=== PATIENT | female | born 1945 | race Caucasian/White ===

== ENCOUNTER 2017-03-12 14:33 | Emergency (ER) | payer MEDICARE, MEDICAID ==
[2017-03-12] MEDS ORDERED: ONDANSETRON HCL INJ/PF 4 MG/2 ML SDV IV ONE (14:51)
[2017-03-12] MEDS ORDERED: MORPHINE SULFATE 10 MG/ML INJ IV ONE (14:51)
--- NOTE | 2017-03-12 14:54 | ER Document Report ---
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 Had another fall just prior to arrival since then having pain over the left hip. She states she fell on her left hip. Denies any head injury denies any loss of consciousness. Denies any pain over the upper limbs. Denies any chest pain or chest wall pain. Denies any abdominal pain. Denies any nausea vomiting TRAVEL OUTSIDE OF THE [place] IN LAST 30 DAYS: No - Related Data Allergies/Adverse Reactions: No Known Allergies Allergy (Verified 11/27/15 12:35) Past Medical History - Social History Smoking Status: Never Smoker Family History: Reviewed & Not Pertinent - Past Medical History Cardiac Medical History: Reports: Hx Congestive Heart Failure, Hx Coronary Artery Disease, Hx Heart Attack - 2003, Hx Hypertension - on meds Pulmonary Medical History: Reports: Hx Bronchitis - occ , Hx COPD, Hx Pneumonia - hx of Denies: Hx Asthma, Hx Tuberculosis Neurological Medical History: Reports: Hx Cerebrovascular Accident - 2007 . Denies: Hx Seizures Endocrine Medical History: Reports: Hx Diabetes Mellitus Type 1, Hx Diabetes Mellitus Type 2 Musculoskeltal Medical History: Reports Hx Arthritis - generalized Past Surgical History: Reports: Hx Cardiac Catheterization - stents x 2, Hx Cardiac Surgery, Hx Hysterectomy, Hx Tubal Ligation. Denies: Hx Pacemaker - Immunizations Hx Diphtheria, Pertussis, Tetanus Vaccination: Yes Hx Pneumococcal Vaccination: 03/18/15 Review of Systems - Review of Systems Notes: REVIEW OF SYSTEMS: CONSTITUTIONAL : Denies fever, chills, or sweats. Denies recent illness. EENT: Denies eye, ear, throat, or mouth pain or symptoms. Denies nasal or sinus congestion or discharge. Denies throat, tongue, or mouth swelling or difficulty swallowing. CARDIOVASCULAR: Denies chest pain. Denies palpitations or racing or irregular heart beat. Denies ankle edema. RESPIRATORY: Denies cough, cold, or chest congestion. Denies shortness of breath, difficulty breathing, or wheezing. GASTROINTESTINAL: Denies abdominal pain or distention. Denies nausea, vomiting , or diarrhea. Denies blood in vomitus, stools, or per rectum. Denies black, tarry stools. Denies constipation. GENITOURINARY: Denies difficulty urinating, painful urination, burning, frequency, blood in urine, or discharge. FEMALE GENITOURINARY: Denies vaginal bleeding, heavy or abnormal periods, irregular periods. Denies vaginal discharge or odor. MUSCULOSKELETAL: As per history of complaint complain. Denies any lower back pain SKIN: Denies rash, lesions or sores. HEMATOLOGIC : Denies easy bruising or bleeding. LYMPHATIC: Denies swollen, enlarged glands. NEUROLOGICAL: Denies confusion or altered mental status. Denies passing out or loss of consciousness. Denies dizziness or lightheadedness. Denies headache. Denies weakness or paralysis or loss of use of either side. Denies problems with gait or speech. Denies sensory loss, numbness, or tingling. Denies seizures. PSYCHIATRIC: Denies anxiety or stress. Denies depression, suicidal ideation, or homicidal ideation. ALL OTHER SYSTEMS REVIEWED AND NEGATIVE. PHYSICAL EXAMINATION: GENERAL: She is alert, oriented, appears to be in discomfort. HEAD: Atraumatic, normocephalic. EYES: Pupils equal round and reactive to light, extraocular movements intact, conjunctiva are normal. ENT: Nares patent, oropharynx clear without exudates. Moist mucous membranes. NECK: Normal range of motion, supple without lymphadenopathy LUNGS: Breath sounds clear to auscultation bilaterally and equal. No wheezes rales or rhonchi. HEART: Regular rate and rhythm without murmurs ABDOMEN: Soft, nontender, nondistended abdomen. No guarding, no rebound. No masses appreciated. Female : deferred Musculoskeletal: Left heel is shorter than the right, it is not externally rotated all flexed. It is not abducted. Tenderness noted diffusely over the left side of the hip, as well as pelvic region. Could not perform any range of motion due to pain. Right lower extremity without any tenderness able to flex partially and extend. Neurovascular function within normal limits. Upper extremity range of motion was within normal limits without any discomfort. NEUROLOGICAL: Cranial nerves grossly intact. Normal speech, normal gait. Normal sensory, motor exams PSYCH: Normal mood, normal affect. SKIN: Warm, Dry, normal turgor, no rashes or lesions noted. Dictation was performed using Object[employer] recognition software Physical Exam - Vital signs Vitals: Temp Pulse Resp BP Pulse Ox 98.8 F 73 16 112/50 L 95 03/12/17 14:42 03/12/17 14:42 03/12/17 14:42 03/12/17 14:42 03/12/17 14:42 Course - Re-evaluation Re-evalutation: 03/12/17 18:24 Patient is sitting up on the bed, pain-free. Comfortable. Wish to go home Family members were around. Discussed her case. Advised strongly to walk with a walker. Family members indicate that she never listens and never walks with a walker or walking stick. She was warned that if she does so she will fall again. - Vital Signs Vital signs: Temp Pulse Resp BP Pulse Ox 98.8 F 73 16 112/50 L 95 03/12/17 14:42 03/12/17 14:42 03/12/17 14:42 03/12/17 14:42 03/12/17 14:42 Discharge - Discharge Clinical Impression: Fall Qualifiers: Encounter type: initial encounter Qualified Code(s): W19.XXXA - Unspecified fall, initial encounter Sprain of left hip Qualifiers: Encounter type: initial encounter Qualified Code(s): S73.102A - Unspecified sprain of left hip, initial encounter Condition: Good Disposition: HOME, SELF-CARE Instructions: Pelvic Pain ([facility])
--- NOTE | 2017-03-12 15:28 | RADIOLOGY REPORT (SQ) ---
EXAM DESCRIPTION: HIP LEFT AP/LATERAL COMPLETED DATE/TIME: 03/12/2017 3:00 pm REASON FOR STUDY: fall COMPARISON: None. NUMBER OF VIEWS: Two views. TECHNIQUE: AP pelvis and additional frog-leg view of the left hip. LIMITATIONS: None. FINDINGS: MINERALIZATION: Normal. LEFT HIP: No fracture or dislocation. No worrisome bone lesions. Moderate joint space narrowing. S mall marginal osteophyte on femoral head. Subchondral cysts in the acetabulum. RIGHT HIP: No fracture or dislocation. No worrisome bone lesions. PUBIS AND ISCHIUM: No fracture. PELVIS: No fracture. SACRUM: No fracture or dislocation. No worrisome bone lesions. LOWER LUMBAR SPINE: No fracture or dislocation. No worrisome bone lesions. No significant disc disea se. SOFT TISSUES: No findings. OTHER: No other significant finding. IMPRESSION: Moderate degenerative joint changes left hip. No acute abnormality. TECHNICAL DOCUMENTATION: JOB ID: [id number] [employer]- All Rights Reserved
--- NOTE | 2017-03-12 16:28 | RADIOLOGY REPORT (SQ) ---
EXAM DESCRIPTION: CT ABD/PELVIS NO ORAL OR IV COMPLETED DATE/TIME: 03/12/2017 4:15 pm REASON FOR STUDY: pelvic pain COMPARISON: None. TECHNIQUE: CT scan of the abdomen and pelvis performed without intravenous or oral contrast. Images reviewed with lung, soft tissue, and bone windows. Reconstructed coronal and sagittal MPR images revi ewed. All images stored on PACS. All CT scanners at this facility use dose modulation, iterative reconstruction, and/or weight based d osing when appropriate to reduce radiation dose to as low as reasonably achievable (ALARA). [facility]: Dose Right [facility]: CareDose [facility]: Dose Right [facility]: Teradose 4D [facility]: [employer] RADIATION DOSE: CT Rad equipment meets quality standard of care and radiation dose reduction techniq ues were employed. CTDIvol: 16.6 mGy. DLP: 916 mGy-cm.mGy. LIMITATIONS: None. FINDINGS: LOWER CHEST: No significant findings. No nodules or infiltrates. NON-CONTRASTED LIVER, SPLEEN, ADRENALS: Evaluation limited by lack of IV contrast. No identified sign ificant masses. PANCREAS: No masses. No peripancreatic inflammatory changes. GALLBLADDER: No identified stones by CT criteria. No inflammatory changes to suggest cholecystitis. RIGHT KIDNEY AND URETER: No suspicious masses. Assessment limited by lack of IV contrast. No signif icant calcifications. No hydronephrosis or hydroureter. LEFT KIDNEY AND URETER: No suspicious masses. Assessment limited by lack of IV contrast. No signifi cant calcifications. No hydronephrosis or hydroureter. AORTA AND RETROPERITONEUM: No aneurysm. No retroperitoneal masses or adenopathy. BOWEL AND PERITONEAL CAVITY: No obvious masses or inflammatory changes. No free fluid. APPENDIX: Not visualized. PELVIS, BLADDER, AND ABDOMINAL WALL:No abnormal masses. No free fluid. Bladder normal. BONES: No significant findings. OTHER: No other significant finding. IMPRESSION: NO SIGNIFICANT OR ACUTE PROCESS IN THE ABDOMEN OR PELVIS. COMMENT: Quality ID # [id number]: Final reports with documentation of one or more dose reduction techniques (e.g., Automated exposure control, adjustment of the mA and/or kV according to patient size, use of iterative reconstruction technique) TECHNICAL DOCUMENTATION: JOB ID: [id number] [employer]- All Rights Reserved
[2017-03-12 18:39] VITALS: BP 117/64
== END 2017-03-12 18:39 | disposition home or self-care (01) ==
LOC: ER 14:33
DX: S73.102A Unspecified sprain of left hip, initial encounter (principal); W19.XXXA Unspecified fall, initial encounter; R10.819 Abdominal tenderness, unspecified site; E11.40 Type 2 diabetes mellitus with diabetic neuropathy, unspecified; I25.10 Atherosclerotic heart disease of native coronary artery without angina pectoris; I25.2 Old myocardial infarction; I10 Essential (primary) hypertension; J44.9 Chronic obstructive pulmonary disease, unspecified; Z86.73 Personal history of transient ischemic attack (TIA), and cerebral infarction without residual deficits; Z95.5 Presence of coronary angioplasty implant and graft
CPT/HCPCS: 74176; 99284

== ENCOUNTER 2017-11-18 08:39 | Emergency (ER) | payer MEDICARE, MEDICAID ==
--- NOTE | 2017-11-18 09:12 | ER Document Report ---
ED General - General Chief Complaint: Fall Stated Complaint: FALL Time Seen by Provider: 11/18/17 08:59 TRAVEL OUTSIDE OF THE [place] IN LAST 30 DAYS: No - HPI Notes: Patient is a 72-year-old female with a history of insulin-dependent diabetes, hypertension, hypercholesterolemia, chronic pain who presents to the ED with family status post fall this morning. Patient states that she was in the bathroom when her knee gave out on her and she fell hitting her head off the floor. Daughter states that she had a knee replacement to her left knee and she has had stability issue since then. Patient states that she has been weak for the last month which has been followed closely by her family doctor and they are working on medicine changes for her currently. Patient states that she has not had any dizziness associated in the reason she fell was because her knee gave out on her. She is otherwise been eating and drinking without any difficulties. She is urinating normally and having normal bowel movements. She has not had any other recent illness. Daughter states that she was brought to the ED because she had increased left hip pain, low back pain, head injury, and neck pain status post her fall. She is also had a small skin tear to the right posterior hand which they vertically up and put a Band-Aid on. Denies any drug allergies. No other concerns or complaints. Denies any headache, fever, changes in vision/speech/mentation/hearing, URI, sore throat, chest pain , palpitations, syncope, cough, shortness of breath, wheeze, dyspnea, abdominal pain, nausea/vomiting/diarrhea, urinary retention, dysuria, hematuria, loss of control of bowel or bladder, numbness/tingling, saddle anesthesia, muscle paralysis/weakness, or rash. - Related Data Allergies/Adverse Reactions: No Known Allergies Allergy (Verified 11/27/15 12:35) Past Medical History - Social History Smoking Status: Never Smoker Chew tobacco use (# tins/day): No Frequency of alcohol use: None Drug Abuse: None Family History: Reviewed & Not Pertinent Patient has suicidal ideation: No Patient has homicidal ideation: No - Past Medical History Cardiac Medical History: Reports: Hx Congestive Heart Failure, Hx Coronary Artery Disease, Hx Heart Attack - 2004, Hx Hypertension - on meds Pulmonary Medical History: Reports: Hx Bronchitis - occ , Hx COPD, Hx Pneumonia - hx of Denies: Hx Asthma, Hx Tuberculosis Neurological Medical History: Reports: Hx Cerebrovascular Accident - 2008 . Denies: Hx Seizures Endocrine Medical History: Reports: Hx Diabetes Mellitus Type 1, Hx Diabetes Mellitus Type 2 Renal/ Medical History: Denies: Hx Peritoneal Dialysis Musculoskeletal Medical History: Reports Hx Arthritis - generalized Past Surgical History: Reports: Hx Cardiac Catheterization - stents x 2, Hx Cardiac Surgery, Hx Hysterectomy, Hx Orthopedic Surgery - L knee replacement, Hx Tubal Ligation. Denies: Hx Pacemaker - Immunizations Hx Diphtheria, Pertussis, Tetanus Vaccination: Yes Hx Pneumococcal Vaccination: 03/18/15 Review of Systems - Review of Systems -: Yes All other systems reviewed and negative Physical Exam - Vital signs Vitals: Temp Pulse Resp BP Pulse Ox 97.5 F 76 18 154/66 H 95 11/18/17 08:44 11/18/17 08:44 11/18/17 08:44 11/18/17 08:44 11/18/17 08:44 - Notes Notes: PHYSICAL EXAMINATION: GENERAL: Well-appearing, well-nourished and in no acute distress. A&Ox4. Answers questions appropriately. HEAD: Atraumatic, normocephalic. Non-tender. No baez sign, hematoma, or bogginess. EYES: Pupils equal round and reactive to light, extraocular movements intact, sclera anicteric, conjunctiva are normal. No raccoon eyes/entrapment ENT: EAC clear b/l. TM's intact b/l without erythema, fluid, or perforation. Nares patent and without discharge. oropharynx clear without exudates. No tonsilar hypertrophy or erythema. Moist mucous membranes. No sinus tenderness. No hemotympanum/CSF discharge. NECK: Normal range of motion, supple without lymphadenopathy. No rigidity. + midline tenderness. Chest: No flail chest. equal rise/fall. Non-tender LUNGS: Breath sounds clear to auscultation bilaterally and equal. No wheezes rales or rhonchi. HEART: Regular rate and rhythm without murmurs, rubs, gallops. ABDOMEN: Soft, nontender, nondistended abdomen. No guarding, no rebound. No masses appreciated. Normal bowel sounds present. No CVA tenderness bilaterally. Musculoskeletal: lt hip: LROM. + tenderness to palpation of the left lateral hip area. Ext's otherwise b/l: FROM to passive/active. Strength 5+/5. No deficits noted. No bony tenderness of extremities. Back: LROM to passive/active. Strength 5+/5. + tenderness to the L-spine. No other bony tenderness or ecchymosis. Extremities: No cyanosis, clubbing, or edema b/l. Peripheral pulses 2+. Capillary refill less than 2 seconds. NEUROLOGICAL: NIH 0. GCS 15. Cranial nerves grossly intact. Normal speech. Normal sensory, motor exams. Reflexes 2+ b/l. SERJIO's negative. Pronator drift negative. PSYCH: Normal mood, normal affect. SKIN: Small skin tear posterior left hand. Course - Re-evaluation Re-evalutation: 11/18/17 10:12 Patient is an afebrile, well-hydrated, 72-year-old female who presents to the ED status post fall with low back pain, left hip pain, neck pain, and a skin tear to the right posterior hand. Vitals are acceptable without any significant tachycardia, tachypnea, or hypoxia. PE is otherwise unremarkable for any focal neurological deficits, neurovascular compromise, obvious tendon/ ligament rupture, obvious fracture/dislocation. CT scan of the head, cervical spine, L spine were unremarkable for acute pathology. X-ray of the left hip was also unremarkable for any acute pathology. Patient declined any Tylenol or Motrin today. We were able to have her ambulate around the hallway without any difficulties, but she does continue to limp. She is tolerating p.o. without any difficulties and is nontoxic-appearing. Low suspicion for any acute glaucoma, temporal arteritis, meningitis, intracranial hemorrhage, ischemic stroke, fracture, expanding/ruptured AAA, cauda equina syndrome, epidural mass lesion/abscess, herniated disc causing severe spinal stenosis, or other systemic infection at this time. Patient is aware that her condition can change from initial presentation and that she needs monitor symptoms closely for any acute changes. Conservative measures for symptoms. Recheck with your PCM in 2-3 days. Return to the ED with any worsening/concerning symptoms otherwise as reviewed in discharge. Patient and family are in agreement. - Vital Signs Vital signs: Temp Pulse Resp BP Pulse Ox 97.5 F 76 18 154/66 H 95 11/18/17 08:44 11/18/17 08:44 11/18/17 08:44 11/18/17 08:44 11/18/17 08:44 Discharge - Discharge Clinical Impression: Cervicalgia, Left hip pain Fall Qualifiers: Encounter type: initial encounter Qualified Code(s): W19.XXXA - Unspecified fall, initial encounter Head injury Qualifiers: Encounter type: initial encounter Qualified Code(s): S09.90XA - Unspecified injury of head, initial encounter Low back pain Qualifiers: Chronicity: acute Back pain laterality: midline Sciatica presence: without sciatica Qualified Code(s): M54.5 - Low back pain Condition: Stable Disposition: HOME, SELF-CARE Instructions: Head Injury Precautions ([facility]), Stretching Exercises for the Back ([facility]), Low Back Pain ([facility]) Additional Instructions: Rest, Ice Tylenol/ibuprofen as needed Light stretches daily Strength exercises as able Moist heat and massage may help F/u with your PCP in 2-3 days for a recheck Consider consult(s) with Orthopedics/physical therapy for ongoing/worsening symptoms Return to the ED with any worsening symptoms and/or development of fever, headache, chest pain, palpitations, syncope, shortness of breath, trouble breathing, abdominal pain, n/v/d, muscle weakness/paralysis, numbness/tingling, swelling, redness, or other worsening symptoms that are concerning to you. Forms: Elevated Blood Pressure Referrals: DEBORAH TREVINO PA-C [NO LOCAL MD] - 11/20/17 [facility] [Provider Group] - Follow up as needed
--- NOTE | 2017-11-18 09:54 | RADIOLOGY REPORT (SQ) ---
EXAM DESCRIPTION: CT HEAD WITHOUT COMPLETED DATE/TIME: 11/18/2017 9:45 am REASON FOR STUDY: pain s/p fall COMPARISON: None. TECHNIQUE: Axial images acquired through the brain without intravenous contrast. Images reviewed wi th bone, brain and subdural windows. Additional sagittal and coronal reconstructions were generated. Images stored on PACS. All CT scanners at this facility use dose modulation, iterative reconstruction, and/or weight based d osing when appropriate to reduce radiation dose to as low as reasonably achievable (ALARA). [facility]: Dose Right [facility]: CareDose [facility]: Dose Right [facility]: Teradose 4D [facility]: [employer] RADIATION DOSE: CT Rad equipment meets quality standard of care and radiation dose reduction techniq ues were employed. CTDIvol: 53.2 mGy. DLP: 991 mGy-cm.mGy. LIMITATIONS: None. FINDINGS: VENTRICLES: Prominent. CEREBRUM: No masses. No hemorrhage. No midline shift. Areas of low density in the white matter mos t likely due to chronic micro-vascular ischemic change. No evidence for acute infarction. CEREBELLUM: No masses. No hemorrhage. No alteration of density. No evidence for acute infarction. EXTRAAXIAL SPACES: Age-related involutional change. No fluid collections. No masses. ORBITS AND GLOBE: No intra- or extraconal masses. Normal contour of globe without masses. CALVARIUM: No fracture. PARANASAL SINUSES: No fluid or mucosal thickening. SOFT TISSUES: No mass or hematoma. OTHER: No other significant finding. IMPRESSION: CHRONIC CHANGES OF ATROPHY AND MICROVASCULAR ISCHEMIA. NO ACUTE PROCESS. EVIDENCE OF ACUTE STROKE: NO. TECHNICAL DOCUMENTATION: JOB ID: [id number] Quality ID # [id number]: Final reports with documentation of one or more dose reduction techniques (e.g., Au tomated exposure control, adjustment of the mA and/or kV according to patient size, use of iterative reconstruction technique) 2010 [employer]- All Rights Reserved Reading location - IP/workstation name: [email or web address]
--- NOTE | 2017-11-18 09:55 | RADIOLOGY REPORT (SQ) ---
EXAM DESCRIPTION: CT CERVICAL SPINE WITHOUT COMPLETED DATE/TIME: 11/18/2017 9:45 am REASON FOR STUDY: pain s/p fall COMPARISON: None. TECHNIQUE: Axial images acquired through the cervical spine without intravenous contrast. Images re viewed with lung, soft tissue and bone windows. Reconstructed coronal and sagittal MPR images review ed. Images stored on PACS. All CT scanners at this facility use dose modulation, iterative reconstruction, and/or weight based d osing when appropriate to reduce radiation dose to as low as reasonably achievable (ALARA). [facility]: Dose Right [facility]: CareDose [facility]: Dose Right [facility]: Teradose 4D [facility]: [employer] RADIATION DOSE: CT Rad equipment meets quality standard of care and radiation dose reduction techniq ues were employed. CTDIvol: 21.2 mGy. DLP: 402 mGy-cm. mGy. LIMITATIONS: None. FINDINGS: ALIGNMENT: Slight anterolisthesis C4 relative to C5. MINERALIZATION: Normal. VERTEBRAL BODIES: No fractures or dislocation. DISCS: Multilevel disc space narrowing with osteophytes. FACETS, LATERAL MASSES, POSTERIOR ELEMENTS: Facet arthropathy. No fractures. No dislocation. No ac josh findings. HARDWARE: None in the spine. VISUALIZED RIBS: No fractures. LUNG APICES AND SOFT TISSUES: No significant or acute findings. OTHER: No other significant finding. IMPRESSION: CHRONIC DEGENERATIVE CHANGES. NO ACUTE FINDINGS. TECHNICAL DOCUMENTATION: JOB ID: [id number] Quality ID # [id number]: Final reports with documentation of one or more dose reduction techniques (e.g., Au tomated exposure control, adjustment of the mA and/or kV according to patient size, use of iterative reconstruction technique) 2010 [employer]- All Rights Reserved Reading location - IP/workstation name: [email or web address]
--- NOTE | 2017-11-18 10:05 | RADIOLOGY REPORT (SQ) ---
EXAM DESCRIPTION: CT LUMBAR SPINE WITHOUT COMPLETED DATE/TIME: 11/18/2017 9:45 am REASON FOR STUDY: pain s/p fall COMPARISON: None. TECHNIQUE: Axial images acquired through the lumbar spine without intravenous contrast. Images revi ewed with lung, soft tissue and bone windows. Reconstructed coronal and sagittal MPR images reviewed . All images stored on PACS. All CT scanners at this facility use dose modulation, iterative reconstruction, and/or weight based d osing when appropriate to reduce radiation dose to as low as reasonably achievable (ALARA). [facility]: Dose Right [facility]: CareDose [facility]: Dose Right [facility]: Teradose 4D [facility]: [employer] RADIATION DOSE: mGy. LIMITATIONS: None. FINDINGS: SEGMENTATION: Normal. No transitional anatomy. ALIGNMENT: Normal. VERTEBRAL BODIES: No fractures. No dislocation. No acute findings. DISCS: Multilevel mild disc space narrowing with disc bulges at L4-5 and L5-S1. PEDICLES, TRANSVERSE PROCESSES: No fractures. No dislocation. No acute findings. FACETS, POSTERIOR ELEMENTS: No pars defect. Fairly mild multilevel facet degenerative changes withou t bulky overgrowth. HARDWARE: None in the spine. VISUALIZED RIBS: No fractures. SOFT TISSUES: No significant or acute finding in adjacent soft tissues. OTHER: No other significant finding. IMPRESSION: No evidence of lumbar spine fracture. Spondylosis. TECHNICAL DOCUMENTATION: JOB ID: [id number] Quality ID # [id number]: Final reports with documentation of one or more dose reduction techniques (e.g., Au tomated exposure control, adjustment of the mA and/or kV according to patient size, use of iterative reconstruction technique) 2010 [employer]- All Rights Reserved Reading location - IP/workstation name: [email or web address]
--- NOTE | 2017-11-18 10:07 | RADIOLOGY REPORT (SQ) ---
EXAM DESCRIPTION: HIP LEFT AP/LATERAL COMPLETED DATE/TIME: 11/18/2017 9:50 am REASON FOR STUDY: left hip pain s/p fall COMPARISON: None. NUMBER OF VIEWS: Two views left hip. LIMITATIONS: None. FINDINGS: Asymmetric, moderate left hip narrowing relative to the right. Consistent with osteoarthr itis. No pelvic or hip fracture or bone lesion. OTHER: No other significant finding. IMPRESSION: Hip DJD. TECHNICAL DOCUMENTATION: JOB ID: [id number] Reading location - IP/workstation name: [email or web address]
[2017-11-18] MEDS ORDERED: KETOROLAC TROMETHAMINE INJ/PF 30 MG/1 ML SDV IM ONE (10:25)
[2017-11-18 10:32] VITALS: BP 142/73
== END 2017-11-18 10:41 | disposition home or self-care (01) ==
LOC: ER 08:39
DX: S09.90XA Unspecified injury of head, initial encounter (principal); S61.411A Laceration without foreign body of right hand, initial encounter; M54.2 Cervicalgia; M54.5 Low back pain; M25.552 Pain in left hip; W01.0XXA Fall on same level from slipping, tripping and stumbling without subsequent striking against object, initial encounter; Y92.002 Bathroom of unspecified non-institutional (private) residence as the place of occurrence of the external cause; E11.9 Type 2 diabetes mellitus without complications; Z79.4 Long term (current) use of insulin; I10 Essential (primary) hypertension; E78.00 Pure hypercholesterolemia, unspecified; Z96.652 Presence of left artificial knee joint; I50.9 Heart failure, unspecified; I25.10 Atherosclerotic heart disease of native coronary artery without angina pectoris; I25.2 Old myocardial infarction; I11.0 Hypertensive heart disease with heart failure; Z86.73 Personal history of transient ischemic attack (TIA), and cerebral infarction without residual deficits; Z90.710 Acquired absence of both cervix and uterus
CPT/HCPCS: 99284; 96372; 73502; 70450; 72125; 72131; L0120; J1885

== ENCOUNTER 2018-06-20 13:02 | Emergency (ER) | payer MEDICARE, MEDICAID ==
[2018-06-20] MEDS ORDERED: DIPH/PERTUSS(ACELL)/TETANUS VAC/PF 0.5 ML SYR (>=10YO) IM ONE (13:45)
[2018-06-20] MEDS ORDERED: ACETAMINOPHEN 325 MG TABLET PO ONE (13:47)
[2018-06-20 14:12] LABS: ABSOLUTE BASOPHILS # (AUTO) 0.1 10^3/uL (0.0-0.2); ABSOLUTE EOSINOPHILS # (AUTO) 0.2 10^3/uL (0.0-0.6); ABSOLUTE LYMPHOCYTES (AUTO) 1.8 10^3/uL (0.5-4.7); ABSOLUTE MONOCYTES (AUTO) 0.9 10^3/uL (0.1-1.4); ABSOLUTE NEUT (AUTO) 5.4 10^3/uL (1.7-8.2); BASOPHILS % (AUTO) 0.9 % (0-2); EOSINOPHILS % (AUTO) 2.8 % (0-6); HEMATOCRIT 43.5 % (36.0-47.0); HEMOGLOBIN 14.8 g/dL (12.0-15.5); MEAN CORPUSCULAR HEMOGLOBIN 30.1 pg (27.0-33.4); MEAN CORPUSCULAR HGB CONC 34.1 g/dL (32.0-36.0); MEAN CORPUSCULAR VOLUME 88 fl (80-97); MONOCYTES % (AUTO) 10.6 % (3-13); PLATELET COUNT 195 10^3/uL (150-450); RED BLOOD COUNT 4.92 10^6/uL (3.72-5.28); RED CELL DISTRIBUTION WIDTH 12.9 % (11.5-14.0); SEGMENTED NEUTROPHILS % (AUTO) 64.7 % (42-78); TOTAL CELLS COUNTED % (AUTO) 100 %; WHITE BLOOD COUNT 8.4 10^3/uL (4.0-10.5)
[2018-06-20 14:23] LABS: ANION GAP 14 (5-19); BLOOD UREA NITROGEN 11 mg/dL (7-20); CALCIUM 10.5 mg/dL (8.4-10.2); CARBON DIOXIDE 27 mmol/L (22-30); CHLORIDE 100 mmol/L (98-107); GLUCOSE 149 mg/dL (75-110); SODIUM 140.6 mmol/L (137-145)
--- NOTE | 2018-06-20 14:26 | RADIOLOGY REPORT (SQ) ---
EXAM DESCRIPTION: TOE RIGHT COMPLETED DATE/TIME: 06/20/2018 2:13 pm REASON FOR STUDY: r gr toe pain, swelling, ?PW COMPARISON: None. EXAM PARAMETERS: NUMBER OF VIEWS: Three views. TECHNIQUE: AP, lateral and oblique radiographic images acquired of the right foot. LIMITATIONS: None. FINDINGS: MINERALIZATION: Normal. BONES: No acute fracture or dislocation. No worrisome bone lesions. JOINTS: No effusion. SOFT TISSUES: Medial soft tissue swelling of the 1st digit near the interphalangeal joint level, ther e is a 1.5 mm radiodensity in the plantar aspect of the medial soft tissues, consistent with radiopaq ue foreign body. OTHER: No other significant finding. IMPRESSION: NO FRACTURE.Medial soft tissue swelling of the 1st digit near the interphalangeal joint level, there is a 1.5 mm radiodensity in the plantar aspect of the medial soft tissues, consistent wi th radiopaque foreign body. TECHNICAL DOCUMENTATION: JOB ID: [id number] 2010 [employer]- All Rights Reserved Reading location - IP/workstation name: [email or web address]
--- NOTE | 2018-06-20 15:10 | ER Document Report ---
HPI - HPI Patient complains to provider of: Tenderness to right great toe Time Seen by Provider: 06/20/18 13:40 Onset: This morning Onset/Duration: Gradual Quality of pain: Achy Pain Level: 2 Context: Patient states she developed tenderness to the right great toe today. Patient states she noticed a dark spot on her foot but does not recall any traumatic injury. Patient has a history of diabetic neuropathy to her feet. Associated Symptoms: Other - Right great toe pain. denies: Fever Exacerbated by: Movement, Walking Relieved by: Denies Similar symptoms previously: No Recently seen / treated by doctor: No - ROS ROS below otherwise negative: Yes Systems Reviewed and Negative: Yes All other systems reviewed and negative - CONSTITUTIONAL Constitutional: DENIES: Fever - NEURO Neurology: DENIES: Weakness - MUSCULOSKELETAL Musculoskeletal: REPORTS: Extremity pain - R big toe - DERM Skin Color: Erythema, Ecchymosis Skin Problems: None Past Medical History - General Information source: Patient - Social History Smoking Status: Never Smoker Chew tobacco use (# tins/day): No Frequency of alcohol use: None Drug Abuse: None Lives with: Family Family History: Reviewed & Not Pertinent Patient has suicidal ideation: No Patient has homicidal ideation: No - Past Medical History Cardiac Medical History: Reports: Hx Congestive Heart Failure, Hx Coronary Artery Disease, Hx Heart Attack - 2003, Hx Hypertension - on meds Pulmonary Medical History: Reports: Hx Bronchitis - occ , Hx COPD, Hx Pneumonia - hx of Denies: Hx Asthma, Hx Tuberculosis Neurological Medical History: Reports: Hx Cerebrovascular Accident - 2008 . Denies: Hx Seizures Endocrine Medical History: Reports: Hx Diabetes Mellitus Type 1, Hx Diabetes Mellitus Type 2 Renal/ Medical History: Denies: Hx Peritoneal Dialysis Musculoskeletal Medical History: Reports Hx Arthritis - generalized Past Surgical History: Reports: Hx Cardiac Catheterization - stents x 2, Hx Cardiac Surgery, Hx Hysterectomy, Hx Orthopedic Surgery - L knee replacement, Hx Tubal Ligation. Denies: Hx Pacemaker - Immunizations Hx Diphtheria, Pertussis, Tetanus Vaccination: Yes Hx Pneumococcal Vaccination: 03/18/15 Vertical Provider Document - CONSTITUTIONAL Agree With Documented VS: Yes Exam Limitations: No Limitations General Appearance: WD/WN, No Apparent Distress - INFECTION CONTROL TRAVEL OUTSIDE OF THE [place] IN LAST 30 DAYS: No - HEENT HEENT: Atraumatic, Normocephalic - NECK Neck: Normal Inspection - RESPIRATORY Respiratory: Breath Sounds Normal, No Respiratory Distress - CARDIOVASCULAR Cardiovascular: Regular Rate, Regular Rhythm Pulses: Normal: Dorsalis pedis - MUSCULOSKELETAL/EXTREMETIES Musculoskeletal/Extremeties: MAEW, FROM, Tender - With mild tenderness to right great toe., No Edema - NEURO Level of Consciousness: Awake, Alert, Appropriate Motor/Sensory: No Motor Deficit - DERM Integumentary: Warm, Dry Notes: Patient with a darkened blister/callus to area to medial aspect of right great toe with what appears to be a plantar puncture wound. Patient does have some erythema to the dorsal aspect of the left great toe although looking at her feet bilaterally she does have similar erythema to the small toes of bilateral feet. Course - Re-evaluation Re-evalutation: 06/20/18 15:[address] Collins regarding patient presentation and evaluation. Dr. Collins to bedside for examination. Agrees with plan for treatment with antibiotics and advises outpatient follow-up with podiatry for further management of possible retained subcutaneous foreign body. No definite concern for infection at this time given patient has erythema to bilateral feet. No concern for lymphangitis. Patient without any fever or leukocytosis at this time. Good return precautions discussed with patient and her family member at bedside. Patient encouraged to wear shoes when she is at home walking around. Patient also encouraged to follow-up with podiatry Thursday. - Vital Signs Vital signs: Temp Pulse Resp BP Pulse Ox 98.0 F 87 16 137/75 H 97 06/20/18 13:18 06/20/18 13:18 06/20/18 13:18 06/20/18 13:18 06/20/18 13:18 - Laboratory Result Diagrams: 06/20/18 14:00 06/20/18 14:00 Laboratory results interpreted by me: 06/20/18 14:00 Glucose 149 H Calcium 10.5 H 06/20/18 15:08 Labs- Entire Visit 06/20/18 06/20/18 14:00 14:00 WBC 8.4 RBC 4.92 Hgb 14.8 Hct 43.5 MCV 88 MCH 30.1 MCHC 34.1 RDW 12.9 Plt Count 195 Seg Neutrophils % 64.7 Lymphocytes % 21.0 Monocytes % 10.6 Eosinophils % 2.8 Basophils % 0.9 Absolute Neutrophils 5.4 Absolute Lymphocytes 1.8 Absolute Monocytes 0.9 Absolute Eosinophils 0.2 Absolute Basophils 0.1 Sodium 140.6 Potassium 4.0 Chloride 100 Carbon Dioxide 27 Anion Gap 14 BUN 11 Creatinine 0.60 Est GFR ( Amer) > 60 Est GFR (Non-Af Amer) > 60 Glucose 149 H Calcium 10.5 H - Diagnostic Test Radiology reviewed: Image reviewed, Reports reviewed Discharge - Discharge Clinical Impression: Retained foreign body Puncture wound of foot Qualifiers: Encounter type: initial encounter Laterality: right Qualified Code(s): S91.331A - Puncture wound without foreign body, right foot, initial encounter Diabetes mellitus Qualifiers: Diabetes mellitus type: other specified (including BARBARA) Diabetes mellitus detention insulin use: unspecified reservations sales supervisor insulin use status Diabetes mellitus complication status: with unspecified complications Qualified Code(s): E13.8 - Other specified diabetes mellitus with unspecified complications Condition: Stable Disposition: HOME, SELF-CARE Instructions: Acetaminophen, Cephalexin ([facility]), Puncture Wound ([facility]), Retained Subcutaneous Foreign Object ([facility]), Tetanus Immunization Given ([facility]) Additional Instructions: Return immediately for any new or worsening symptoms Followup with your primary care provider, call tomorrow to make a followup a ppointment Follow-up with a embedded processor for further evaluation of retained foreign body to the foot. Call tomorrow for an appointment Turn immediately for any fever, increased redness, increased swelling, worsening pain or any concerning symptoms. Prescriptions: Cephalexin Monohydrate [Keflex 500 mg Capsule] 500 mg PO Q6H 7 Days capsule Referrals: BOLIVAR JOY DPM [ACTIVE STAFF] - Follow up as needed HIEN ROMO MD [NO LOCAL MD] - Follow up tomorrow ZAIN KATHLEEN MD [NO LOCAL MD] - Follow up tomorrow
[2018-06-20 15:27] VITALS: BP 113/61
== END 2018-06-20 15:34 | disposition home or self-care (01) ==
LOC: ER 13:02
DX: S91.331A Puncture wound without foreign body, right foot, initial encounter (principal); E13.8 Other specified diabetes mellitus with unspecified complications; M79.674 Pain in right toe(s); X58.XXXA Exposure to other specified factors, initial encounter; I50.9 Heart failure, unspecified; I25.10 Atherosclerotic heart disease of native coronary artery without angina pectoris; I25.2 Old myocardial infarction; I11.0 Hypertensive heart disease with heart failure; Z79.899 Other long term (current) drug therapy
CPT/HCPCS: 99283; 90471; 36415; 85025; 80048; 73660; 90715; A9270

== ENCOUNTER 2020-01-18 10:43 | Day surgery (SDC) | payer MEDICARE, MEDICAID ==
[~2020-01-18 10:43] MED LIST: KETOROLAC TROMETHAMINE 0.45% 4 DROP/0.4 ML DROPERETTE OD PRN
[2020-01-18] MEDS: BESIFLOXACIN HCL 0.6% OPH SUSP 5 ML BOTTLE OD PRN ×4 (11:20→12:28)
[2020-01-18] MEDS: TROPICAMIDE 1% OPH SOLN 15 ML OD PRN ×3 (11:20→11:45)
[2020-01-18] MEDS: CYCLOPENTOLATE 0.2%/PHENYLEPHRINE 1% OPH SOLN 2 ML OD PRN ×3 (11:20→11:45)
[2020-01-18] MEDS ORDERED: ONDANSETRON HCL INJ/PF 4 MG/2 ML SDV ONE (11:20)
[2020-01-18] MEDS ORDERED: FENTANYL CITRATE INJ/PF 100 MCG/2 ML AMPUL ONE (11:20)
[2020-01-18] MEDS ORDERED: MIDAZOLAM 2 MG/2 ML INJ ONE (11:20)
[2020-01-18] MEDS: TETRACAINE HCL 0.5% OPH SOLN 4 ML OD PRN ×3 (11:20→12:10)
[2020-01-18] MEDS: LIDOCAINE 1%/PHENYLEPHRINE 1.5% 1 ML VIAL ONE ×2 (12:17→12:19)
[2020-01-18] MEDS: CHONDR SU A NA/HYALUR INTRAOC KIT (SURGICARE) ONE ×2 (12:17→12:19)
[2020-01-18] MEDS: EPINEPHRINE INJ/PF 1 MG/1 ML AMPULE ONE ×2 (12:17→12:18)
[2020-01-18] MEDS: PREDNISOLONE ACETATE 1% OPH SUSP 5 ML OD PRN ×2 (12:19→12:28)
[2020-01-18] MEDS: DORZOLAMIDE HCL 2%/TIMOLOL MALEAT 0.5% OPH SOLN 10 ML OD PRN ×2 (12:19→12:28)
--- NOTE | 2020-01-18 14:34 | Operative Report ---
Operative Report-[facility] Operative Report: DATE OF SURGERY: January 18, 2020 PREOPERATIVE DIAGNOSIS: NUCLEAR CATARACT, RIGHT EYE. POSTOPERATIVE DIAGNOSIS: NUCLEAR CATARACT, RIGHT EYE. PROCEDURE PERFORMED: PHACOEMULSIFICATION WITH POSTERIOR CHAMBER INTRAOCULAR LENS IMPLANT, RIGHT EYE. SURGEON: Alex Goel DO MEDICATIONS AND ANESTHESIA: Versed: IV Versed Tetracaine drops: 1 to 2 drops given as needed COMPLICATION: None INDICATIONS FOR SURGERY: Medical necessity: Best corrected visual acuity worse than 20/40 secondary to cataracts with impairment of ability to carry out needs or desired activities, blurred vision, visual distortion, reduced contrast sensitivity and/or glare with association functional impairment and supporting documentation/testing, and cataracts causing symptomatic impairment of visual functions not corrected with tolerable changes in glasses or contact lenses interfering with activities of daily life. PROCEDURE: Consent: The risks, benefits and alternatives of this procedures was discussed with the patient. The patient read and signed the consent forms, was identified and was seated in the exam chair. IOL: MX 60 E 24.0 IOL Diopters: Phacoemulsification with posterior chamber intraocular lens implant: The face was prepped with 5% povidone iodine solution, and a few drops of 5% povidone iodine solution was instilled into the inferior fornix. A non-fenestrated drape was placed over the eye and the lids were parted with the speculum. A paracentesis was made with a 15 degree blade, and 1% lidocaine MPF followed by viscoelastic was injected into the anterior chamber. A 2.4 mm metal micro- keratome was used to create a temporal clear corneal incision. A circular anterior capsulorrhexis was created, followed by hydro-dissection and hydro- delineation. The phacoemulsification hand piece was inserted and the nucleus was removed with the Phaco chop technique. The irrigation-aspiration hand piece was used to remove the residual cortex, and vacuum the posterior capsule. The capsular bag was inflated and viscoelastic and the above-mentioned IOL was injected into the eye with care to insert both leaning and trailing haptics in the capsular bag. The irrigation/aspiration hand piece was reinserted to remove residual viscoelastic from the capsular bag and anterior chamber. The corneal incision was hydrated, and anterior chamber was inflated with sterile BSS via the paracentesis site, and found to be watertight. Postop medication: 1 drop of prednisolone into operative by followed by 1 drop of Cosopt into operative eye followed by 1 drop of Besivance intraoperative by other:
== END 2020-01-18 13:00 ==
LOC: SC 10:43
PROVIDERS: ATTEND Ophthalmology
DX: H25.11 Age-related nuclear cataract, right eye (principal); E11.36 Type 2 diabetes mellitus with diabetic cataract; I25.2 Old myocardial infarction; G47.33 Obstructive sleep apnea (adult) (pediatric); Z86.73 Personal history of transient ischemic attack (TIA), and cerebral infarction without residual deficits; Z79.4 Long term (current) use of insulin
CPT/HCPCS: 66984; 82962; J2250; J3490 ×2; A9270; J0171; J2405; J3010; V2632

== ENCOUNTER 2020-02-01 10:17 | Day surgery (SDC) | payer MEDICARE, MEDICAID ==
[~2020-02-01 10:17] MED LIST changes: +CHONDR SU A NA/HYALUR INTRAOC KIT (SURGICARE) ONE; +EPINEPHRINE INJ/PF 1 MG/1 ML AMPULE ONE; -KETOROLAC TROMETHAMINE 0.45% 4 DROP/0.4 ML DROPERETTE OD PRN; +KETOROLAC TROMETHAMINE 0.45% 4 DROP/0.4 ML DROPERETTE OS PRN; +LIDOCAINE 1%/PHENYLEPHRINE 1.5% 1 ML VIAL ONE; +MIDAZOLAM 2 MG/2 ML INJ ONE
[2020-02-01] MEDS: TETRACAINE HCL 0.5% OPH SOLN 4 ML OS PRN ×3 (11:00→11:45)
[2020-02-01] MEDS: BESIFLOXACIN HCL 0.6% OPH SUSP 5 ML BOTTLE OS PRN ×4 (11:01→12:04)
[2020-02-01] MEDS: TROPICAMIDE 1% OPH SOLN 15 ML OS PRN ×3 (11:01→11:28)
[2020-02-01] MEDS: CYCLOPENTOLATE 0.2%/PHENYLEPHRINE 1% OPH SOLN 2 ML OS PRN ×3 (11:01→11:28)
[2020-02-01] MEDS: PREDNISOLONE ACETATE 1% OPH SUSP 5 ML OS PRN ×2 (12:04)
[2020-02-01] MEDS: DORZOLAMIDE HCL 2%/TIMOLOL MALEAT 0.5% OPH SOLN 10 ML OS PRN ×2 (12:04)
--- NOTE | 2020-02-01 15:36 | Operative Report ---
Operative Report-[facility] Operative Report: DATE OF SURGERY: February 01, 2020 PREOPERATIVE DIAGNOSIS: NUCLEAR CATARACT, LEFT EYE. POSTOPERATIVE DIAGNOSIS: NUCLEAR CATARACT, LEFT EYE. PROCEDURE PERFORMED: PHACOEMULSIFICATION WITH POSTERIOR CHAMBER INTRAOCULAR LENS IMPLANT, LEFT EYE. SURGEON: Alex Goel DO MEDICATIONS AND ANESTHESIA: Versed: IV Versed Tetracaine drops: 1 to 2 drops given as needed COMPLICATION: None INDICATIONS FOR SURGERY: Medical necessity: Best corrected visual acuity worse than 20/40 secondary to cataracts with impairment of ability to carry out needs or desired activities, blurred vision, visual distortion, reduced contrast sensitivity and/or glare with association functional impairment and supporting documentation/testing, and cataracts causing symptomatic impairment of visual functions not corrected with tolerable changes in glasses or contact lenses interfering with activities of daily life. PROCEDURE: Consent: The risks, benefits and alternatives of this procedures was discussed with the patient. The patient read and signed the consent forms, was identified and was seated in the exam chair. IOL: MX 60 E 23.0 IOL Diopters: Phacoemulsification with posterior chamber intraocular lens implant: The face was prepped with 5% povidone iodine solution, and a few drops of 5% povidone iodine solution was instilled into the inferior fornix. A non-fenestrated drape was placed over the eye and the lids were parted with the speculum. A paracentesis was made with a 15 degree blade, and 1% lidocaine MPF followed by viscoelastic was injected into the anterior chamber. A 2.4 mm metal micro- keratome was used to create a temporal clear corneal incision. A circular anterior capsulorrhexis was created, followed by hydro-dissection and hydro- delineation. The phacoemulsification hand piece was inserted and the nucleus was removed with the Phaco chop technique. The irrigation-aspiration hand piece was used to remove the residual cortex, and vacuum the posterior capsule. The capsular bag was inflated and viscoelastic and the above-mentioned IOL was injected into the eye with care to insert both leaning and trailing haptics in the capsular bag. The irrigation/aspiration hand piece was reinserted to remove residual viscoelastic from the capsular bag and anterior chamber. The corneal incision was hydrated, and anterior chamber was inflated with sterile BSS via the paracentesis site, and found to be watertight. Postop medication:1 drop of prednisolone into operative by followed by 1 drop of Cosopt into operative eye followed by 1 drop of Besivance intraoperative by Other:
== END 2020-02-01 13:37 | disposition home or self-care (01) ==
LOC: SC 10:17
PROVIDERS: ATTEND Ophthalmology
DX: H25.12 Age-related nuclear cataract, left eye (principal); Z98.41 Cataract extraction status, right eye; E11.36 Type 2 diabetes mellitus with diabetic cataract; Z86.73 Personal history of transient ischemic attack (TIA), and cerebral infarction without residual deficits; Z79.4 Long term (current) use of insulin
CPT/HCPCS: 66984; 82962; V2632; J2250; J3490 ×2; A9270; J0171